=== PATIENT | female | born 1970 | race Caucasian/White ===

== ENCOUNTER 2018-11-19 08:27 | Emergency (ER) | payer MEDICAID ==
[~2018-11-19] VITALS: Ht 167.6 cm; Wt 66.2 kg
[2018-11-19 08:39] VITALS: Ht 167.6 cm; Wt 66.2 kg
[2018-11-19 09:25] LABS: BASOPHIL % 0.5 % (0-2); PLATELET COUNT 216 x10^3mcL (130-400); RED CELL DISTRIBUTION WIDTH 13.6 % (11.5-14.5)
[2018-11-19 09:33] LABS: CALCIUM 8.7 mg/dL (8.5-10.1); CARBON DIOXIDE 30.7 mmol/L (21-32); CHLORIDE SERUM 109 mmol/L (98-107); CREATININE SERUM 0.7 mg/dL (0.6-1.0); GFR1 > 60 mL/min; GLUCOSE SERUM 91 mg/dL (74-106); SODIUM SERUM 144 mmol/L (136-145)
[2018-11-19 09:36] LABS: ALBUMIN 3.4 g/dL (3.4-5.0); ALKALINE PHOSPHATASE 78 U/L (46-116); ALT/SGPT 21 U/L (14-59); AST/SGOT 16 U/L (15-37); BILIRUBIN TOTAL 0.3 mg/dL (0.20-1.00); CHOLESTEROL 190 mg/dL (<200); TOTAL PROTEIN, SERUM 7.1 g/dL (6.4-8.2); TRIGLYCERIDES 41 mg/dL (<150)
[2018-11-19 09:37] LABS: CHOLESTEROL/HDL RATIO 2.9; HDL CHOLESTEROL 65 mg/dL (40-60)
[2018-11-19 09:49] LABS: FREE T4 0.89 ng/dL (0.76-1.46); FREE THYROXINE INDEX 2.3 ug/dL (1.4-4.5)
[2018-11-19 09:51] LABS: T3 TOTAL 1.15 ng/mL
[2018-11-19 11:18] VITALS: BP 94/53
== END 2018-11-19 11:18 | disposition home or self-care (01) ==
LOC: ED 08:27
PROVIDERS: Specialist
DX: G44.209 Tension-type headache, unspecified, not intractable (principal); R06.03 Acute respiratory distress
CPT/HCPCS: 84439; J1885; J7030